=== PATIENT | male | born 1990 | race Caucasian/White ===

== ENCOUNTER 2024-04-13 12:06 | Emergency (ER) | payer MEDICAID ==
[~2024-04-13] VITALS: Ht 182.9 cm; Wt 111.8 kg
[2024-04-13] MEDS ORDERED: AZIT-164 PO (14:54)
[2024-04-13] MEDS ORDERED: AMOX500C96 PO (14:54)
[2024-04-13 15:13] VITALS: BP 141/94; PULSE 76; RESP 16; TEMP 98.6; O2SAT 98
== END 2024-04-13 15:15 | disposition home or self-care (01) ==
LOC: ER 12:07
DX: R05.9 Cough, unspecified (principal); J18.8 Other pneumonia, unspecified organism; F17.200 Nicotine dependence, unspecified, uncomplicated
CPT/HCPCS: 71046; 99283